=== PATIENT | female | born 1970 | race Two or more races ===

== ENCOUNTER 2019-09-21 11:14 | Emergency (ER) | payer OTHER ==
[~2019-09-21] VITALS: Ht 160 cm; Wt 86.2 kg
[~2019-09-21 11:14] MED LIST: LISINOPRIL10 MG
== END 2019-09-21 14:41 | disposition home or self-care (01) ==
LOC: ER 11:14
DX: K52.9 Noninfective gastroenteritis and colitis, unspecified (principal)